=== PATIENT | male | born 1960 | race Caucasian/White ===

== ENCOUNTER 2018-10-12 18:07 | Inpatient (IN) | payer BC ==
[~2018-10-12] VITALS: Ht 185.4 cm; Wt 153.8 kg
[2018-10-12 18:00] VITALS: BP 116/65
[~2018-10-12 18:07] MED LIST: ringers solution, lacted 1,000 ML IV ONE
--- NOTE | 2018-10-12 18:45 | NUR ---
Patient arrived as direct admit patient. Vitals all WNL, doctor aware of patient arrival.
[2018-10-12] MEDS ORDERED: MESSAGE TO NURSING PO ONE ×3 (19:10)
[2018-10-12 19:55] LABS: BASOPHILS % (AUTO) 0.4 % (0-1); EOSINOPHILS # (AUTO) 0.2 X10'3 (0-0.9); EOSINOPHILS % (AUTO) 2.8 % (0-6); HEMATOCRIT 45.6 % (42.0-52.0); HEMOGLOBIN 15.5 g/dl (14.0-17.9); LYMPHOCYTES # (AUTO) 1.9 X10'3 (1.1-4.8); LYMPHOCYTES % (AUTO) 21.4 % (21-51); MEAN CORPUSCULAR HGB CONC 34.1 % (33.0-36.5); MEAN CORPUSCULAR VOLUME 93.9 FL (78-98); MONOCYTES # (AUTO) 0.8 X10'3 (0-0.9); NEUTROPHILS # (AUTO) 5.9 X10'3 (1.8-7.7); NEUTROPHILS % (AUTO) 66.4 % (42-75); PLATELET COUNT 164 X10'3 (140-440); RED BLOOD COUNT 4.86 X10'6 (4.70-6.10); RED CELL DISTRIBUTION WIDTH 12.8 % (11.5-14.5); WHITE BLOOD COUNT 8.8 X10'3 (4.5-11.0)
[2018-10-12] MEDS ORDERED: NO HOME MEDS (19:55)
[2018-10-12] MEDS ORDERED: mupirocin 2% ointment 22GM NS SCH (20:00)
[2018-10-12 20:12] LABS: ALANINE AMINOTRANSFERASE 32 U/L (12-78); ALBUMIN 4.1 G/DL (3.4-5.0); ALKALINE PHOSPHATASE 90 IU/L (46-116); ANION GAP 12 (8-16); ASPARTATE AMINO TRANSFERASE 20 U/L (10-37); BILIRUBIN,TOTAL 0.5 MG/DL (0.1-1.0); BLOOD UREA NITROGEN 19 MG/DL (7-18); BUN/CREATININE RATIO 17.6 (5.4-32.0); CALCIUM 9.2 MG/DL (8.5-10.1); CHLORIDE 103 MMOL/L (99-107); CREATININE 1.08 MG/DL (0.60-1.10); GLUCOSE 80 MG/DL (70-104); POTASSIUM 3.8 MMOL/L (3.5-5.1); SODIUM 140 MMOL/L (135-145); TOTAL CARBON DIOXIDE 25.5 MMOL/L (24-32); TOTAL PROTEIN 8.1 G/DL (6.4-8.2); eGFR 71 ML/MIN
[2018-10-12 22:00] VITALS: BP 139/82
[2018-10-12] MEDS: metoprolol tartrate 12.5mg (1/2 tablet) PO SCH (22:12)
[2018-10-12 22:16] LABS: ABG BASE EXCESS 2.2 mmol/L (-2.0-3.0); ABG HCO3 26.7 mmol/L (22.0-26.0); ABG OXYGEN SATURATION 94.6 % (95-98); ABG PCO2 (T) 40.5 mmHg (35.0-48.0); ABG PH (T) 7.436 (7.350-7.450); ABG PO2 (T) 70.8 mmHg (83-108); ALLEN'S TEST Positive; FCOHb 0.9 % (0.5-1.5); FMetHb 0.2 % (0.3-1.12); FO2Hb 93.6 % (94-100); PATIENT TEMPERATURE 36.6; TOTAL HEMOGLOBIN 15.5 G/dl (14.0-18.0)
[2018-10-12] MEDS ORDERED: mupirocin 2% nasal ointment 1gm UD NS SCH (22:17)
[2018-10-13] VITALS (16 sets, daily range): BP systolic 90–143; BP diastolic 52–73
--- NOTE | 2018-10-13 03:00 | NUR ---
Dr Key called regarding AVR prep. Betablocker will be given at 0530 before surgery. Nonadmin 0800 dose. He did not want insulin drip for the surgery.
[2018-10-13] MEDS ORDERED: ceFAZolin 1000mg inj ONE (05:01)
[2018-10-13] MEDS ORDERED: DOCUMENT DATE & TIME OF BETA-BLOCKER PO ONE (05:30)
[2018-10-13] MEDS ORDERED: mupirocin 2% nasal ointment 1gm UD NS ONE (05:30)
[2018-10-13] MEDS ORDERED: ceFAZolin inj. 3,000 MG in normal saline 100ml IV soln 100 ML IV ONE (05:30)
[2018-10-13] MEDS ORDERED: vancomycin inj 1,500 MG in normal saline 300ml IV soln IV ONE (05:30)
[2018-10-13] MEDS ORDERED: metoprolol tartrate 12.5mg (1/2 tablet) PO ONE (05:30)
[2018-10-13] MEDS ORDERED: famotidine 20mg tablet PO ONE (06:00)
[2018-10-13] MEDS ORDERED: LORazepam 2 mg/ml vial IV ONE (06:00)
--- NOTE | 2018-10-13 06:35 | NUR ---
Patient in room MED 307. I have received report from Chip FRANKLIN and Kayy FRANKLIN and had the opportunity to ask questions and assume patient care.
[2018-10-13 06:36] LABS: BASOPHILS % (AUTO) 0.3 % (0-1); EOSINOPHILS # (AUTO) 0.2 X10'3 (0-0.9); EOSINOPHILS % (AUTO) 2.5 % (0-6); HEMATOCRIT 45.1 % (42.0-52.0); HEMOGLOBIN 15.4 g/dl (14.0-17.9); LYMPHOCYTES # (AUTO) 2.2 X10'3 (1.1-4.8); LYMPHOCYTES % (AUTO) 23.2 % (21-51); MEAN CORPUSCULAR HEMOGLOBIN 32.1 PG (27.0-31.0); MEAN CORPUSCULAR HGB CONC 34.2 % (33.0-36.5); MEAN CORPUSCULAR VOLUME 93.7 FL (78-98); MONOCYTES # (AUTO) 0.9 X10'3 (0-0.9); MONOCYTES % (AUTO) 9.8 % (2-12); NEUTROPHILS # (AUTO) 6.2 X10'3 (1.8-7.7); NEUTROPHILS % (AUTO) 64.2 % (42-75); PLATELET COUNT 176 X10'3 (140-440); RED BLOOD COUNT 4.81 X10'6 (4.70-6.10); RED CELL DISTRIBUTION WIDTH 13.4 % (11.5-14.5); WHITE BLOOD COUNT 9.6 X10'3 (4.5-11.0)
[2018-10-13 06:50] LABS: ALBUMIN 3.7 G/DL (3.4-5.0); ANION GAP 10 (8-16); BLOOD UREA NITROGEN 17 MG/DL (7-18); BUN/CREATININE RATIO 15.3 (5.4-32.0); CHLORIDE 102 MMOL/L (99-107); CREATININE 1.11 MG/DL (0.60-1.10); GLUCOSE 93 MG/DL (70-104); POTASSIUM 3.9 MMOL/L (3.5-5.1); SODIUM 138 MMOL/L (135-145); TOTAL CARBON DIOXIDE 26.3 MMOL/L (24-32); eGFR 69 ML/MIN
[2018-10-13] MEDS: metoprolol tartrate 12.5mg (1/2 tablet) PO SCH (06:54)
--- NOTE | 2018-10-13 07:55 | NUR ---
Waited on giving ativan per [facility] nurses, actual administration time 0755.
--- NOTE | 2018-10-13 08:00 | NUR ---
Patient picked up in stable condition and taken to [facility].
[2018-10-13] MEDS ORDERED: SUFENTANIL CITRATE 50 MCG/ML 2ml ampule IV ONE (08:05)
[2018-10-13] MEDS ORDERED: MIDAZolam 1mg/ml 10ml vial ONE (08:05)
[2018-10-13] MEDS ORDERED: phenylephrine 10mg/ml inj. ONE (08:08)
[2018-10-13] MEDS ORDERED: pancuronium br 1mg/ml inj IV ONE (08:10)
[2018-10-13] MEDS ORDERED: etomidate 2mg/ml inj. ONE (08:10)
[2018-10-13 08:51] LABS: ABG BASE EXCESS 0.2 mmol/L (-2.0-3.0); ABG HCO3 26.4 mmol/L (22.0-26.0); ABG PCO2 48.2 mmHg (35.0-45.0); ABG PH 7.356 (7.350-7.450); ABG PO2 211.7 mmHg (60.0-100.0); CL (ABG) 104 mmol/L (99-107); FCOHb 0.8 % (0.5-1.5); FMetHb 0.3 % (0.3-1.12); FO2Hb 97.9 % (94-100); GLUCOSE (ABG) 107 mg/dl (70-105); IONIZED CA (ABG) 1.17 mmol/L (1.03-1.32); K (ABG) 4.2 mmol/L (3.3-5.1); NA (ABG) 135 mmol/L (135-145); TOTAL HEMOGLOBIN 14.7 G/dl (14.0-18.0)
[2018-10-13] MEDS ORDERED: ePHEDrine 50MG/ML INJ. ONE (08:52)
[2018-10-13 09:21] LABS: ACT @ 1.70 U 326 SEC (193-297); ACT @ 2.84 U 462 SEC (260-420); BASELINE ACT 165 SEC (101-148)
[2018-10-13 09:36] LABS: ABG BASE EXCESS 3.1 mmol/L (-2.0-3.0); ABG HCO3 27.8 mmol/L (22.0-26.0); ABG OXYGEN SATURATION 99.4 % (95-98); ABG PH 7.428 (7.350-7.450); ABG PO2 407.2 mmHg (60.0-100.0); CL (ABG) 102 mmol/L (99-107); FCOHb 0.5 % (0.5-1.5); FMetHb 0.1 % (0.3-1.12); FO2Hb 98.8 % (94-100); GLUCOSE (ABG) 113 mg/dl (70-105); IONIZED CA (ABG) 1.03 mmol/L (1.03-1.32); K (ABG) 5.2 mmol/L (3.3-5.1); NA (ABG) 131 mmol/L (135-145); TOTAL HEMOGLOBIN 11.5 G/dl (14.0-18.0)
[2018-10-13] MEDS ORDERED: fentaNYL /PF 50mcg/ml 5ml ampule ONE (09:53)
[2018-10-13 09:56] LABS: ABG BASE EXCESS VENOUS 1.9 mmol/L; ABG HCO3 VENOUS 27.6 mmol/L; ABG PCO2 VENOUS 47.8 mmHg; ABG PO2 VENOUS 43.3 mmHg; CL (ABG) 102 mmol/L (99-107); FHHb VENOUS 21.9 %; FMetHb VENOUS 0.1 %; GLUCOSE (ABG) 126 mg/dl (70-105); IONIZED CA (ABG) 1.08 mmol/L (1.03-1.32); K (ABG) 4.9 mmol/L (3.3-5.1); NA (ABG) 133 mmol/L (135-145); TOTAL HEMOGLOBIN 12.3 G/dl (14.0-18.0)
[2018-10-13] MEDS ORDERED: MESSAGE TO NURSING PO ONE (10:00)
[2018-10-13 10:10] LABS: ABG HCO3 27.4 mmol/L (22.0-26.0); ABG OXYGEN SATURATION 99.4 % (95-98); ABG PCO2 41.2 mmHg (35.0-45.0); ABG PH 7.441 (7.350-7.450); ABG PO2 404.5 mmHg (60.0-100.0); CL (ABG) 99 mmol/L (99-107); FCOHb 0.4 % (0.5-1.5); FMetHb 0.3 % (0.3-1.12); FO2Hb 98.7 % (94-100); GLUCOSE (ABG) 126 mg/dl (70-105); IONIZED CA (ABG) 1.04 mmol/L (1.03-1.32); NA (ABG) 129 mmol/L (135-145); TOTAL HEMOGLOBIN 11.2 G/dl (14.0-18.0)
[2018-10-13 10:35] LABS: ABG BASE EXCESS VENOUS 2.2 mmol/L; ABG HCO3 VENOUS 27.5 mmol/L; ABG PCO2 VENOUS 45.9 mmHg; ABG PO2 VENOUS 35.7 mmHg; CL (ABG) 102 mmol/L (99-107); FCOHb VENOUS 1.4 %; FHHb VENOUS 34.2 %; FMetHb VENOUS 0.1 %; FO2Hb VENOUS 64.3 %; GLUCOSE (ABG) 135 mg/dl (70-105); NA (ABG) 133 mmol/L (135-145); TOTAL HEMOGLOBIN 11.9 G/dl (14.0-18.0)
[2018-10-13] MEDS ORDERED: nitroGLYCERIN-Tridil 50MG/D5W 250 ML IV PRN (10:52)
[2018-10-13] MEDS ORDERED: niCARDipine-NS 40mg/200ml IVPB 200 ML IV PRN (10:52)
[2018-10-13] MEDS ORDERED: HYDROcodone/acetaminophen 10/325mg tab PO PRN (10:55)
[2018-10-13] MEDS ORDERED: sodium phosphate inj. 30 MMOL in dextrose 5%-water 250 ML IV PRN (10:55)
[2018-10-13] MEDS ORDERED: pantoprazole 40 MG vial IV ONE (10:55)
[2018-10-13] MEDS ORDERED: acetaminophen 325mg tablet PO PRN (10:55)
[2018-10-13] MEDS ORDERED: magnesium 4gm in 100ml NS 100 ML IV PRN (10:55)
[2018-10-13] MEDS ORDERED: potassium Cl 20mEq/100mL bag 100 ML IV PRN ×2 (10:55)
[2018-10-13] MEDS ORDERED: dextrose 50%-water 50ml dispensing syringe IV PRN (10:55)
[2018-10-13] MEDS ORDERED: normal saline 250ml IV soln 250 ML IV PRN (10:55)
[2018-10-13] MEDS ORDERED: Neutra Phos packet PO PRN (10:55)
[2018-10-13] MEDS ORDERED: metoclopramide 5 mg/ml inj IV PRN (10:55)
[2018-10-13] MEDS ORDERED: insulin regular, human inj. 100 UNITS in normal saline 100ml IV soln 100 ML IV SCH ×2 (10:55)
[2018-10-13] MEDS ORDERED: magnesium hydroxide 30ml (MOM) UD suspension PO PRN (10:55)
[2018-10-13] MEDS ORDERED: sodium phosphate inj. 15 MMOL in dextrose 5%-water 150 ML IV PRN (10:55)
[2018-10-13 10:56] LABS: ACTIVATED CLOTTING TIME 137 SEC (101-148)
--- NOTE | 2018-10-13 11:15 | NUR ---
Received to room 2038, accompanied by and Dr. Rooney and surgical crew. Placed on ventilator, to bowstring maker, arterial line and PA line pressure monitored. Chest tubes to suction at 20 cm. Horton cath to gravity drainage. Dressings are dry and intact. See assessment record. All vasoactive drugs are infusing via central line.
[2018-10-13] MEDS: insulin regular, human 100 UNIT in normal saline 100ml IV soln 99 ML IV SCH ×4 (11:34→14:02)
[2018-10-13] MEDS: sodium chloride 0.45% 1,000 ML IV SCH (11:35)
[2018-10-13 11:41] LABS: BASOPHILS % (AUTO) 0.2 % (0-1); EOSINOPHILS # (AUTO) 0.2 X10'3 (0-0.9); EOSINOPHILS % (AUTO) 1.3 % (0-6); HEMATOCRIT 44.4 % (42.0-52.0); HEMOGLOBIN 15.4 g/dl (14.0-17.9); LYMPHOCYTES # (AUTO) 0.8 X10'3 (1.1-4.8); LYMPHOCYTES % (AUTO) 4.8 % (21-51); MEAN CORPUSCULAR HEMOGLOBIN 32.3 PG (27.0-31.0); MEAN CORPUSCULAR HGB CONC 34.8 g/dL (33.0-36.5); MEAN CORPUSCULAR VOLUME 92.8 FL (78-98); MEAN PLATELET VOLUME 9.8 FL (7.4-10.4); MONOCYTES # (AUTO) 0.6 X10'3 (0-0.9); MONOCYTES % (AUTO) 3.3 % (2-12); NEUTROPHILS # (AUTO) 15.6 X10'3 (1.8-7.7); NEUTROPHILS % (AUTO) 90.4 % (42-75); PLATELET COUNT 107 X10'3 (140-440); RED BLOOD COUNT 4.78 X10'6 (4.70-6.10); RED CELL DISTRIBUTION WIDTH 13.3 % (11.5-14.5); WHITE BLOOD COUNT 17.3 X10'3 (4.5-11.0)
[2018-10-13] MEDS: albumin (Human) 5% 250ml 250 ML IV PRN ×3 (11:47→13:19)
[2018-10-13 11:51] LABS: ABG BASE EXCESS -0.6 mmol/L (-2.0-3.0); ABG HCO3 23.8 mmol/L (22.0-26.0); ABG OXYGEN SATURATION 96.1 % (95-98); ABG PCO2 (T) 38.6 mmHg (35.0-48.0); ABG PH (T) 7.408 (7.350-7.450); ABG PO2 (T) 84.4 mmHg (83-108); FCOHb 1.1 % (0.5-1.5); FMetHb 0.3 % (0.3-1.12); FO2Hb 94.8 % (94-100); MINUTE VOLUME 11 L/min; PEEP 5 cm H2O; RESPIRATORY RATE 14 b/min; RESPIRATORY RATE (OBSERVED) 14 b/min; TIDAL VOLUME 700 mL
[2018-10-13 11:55] LABS: ALANINE AMINOTRANSFERASE 25 U/L (12-78); ALBUMIN 3.4 G/DL (3.4-5.0); ALBUMIN/GLOBULIN RATIO 1.3 (1.1-1.5); ALKALINE PHOSPHATASE 62 IU/L (46-116); ANION GAP 10 (8-16); BILIRUBIN,TOTAL 1.3 MG/DL (0.1-1.0); BLOOD UREA NITROGEN 17 MG/DL (7-18); BUN/CREATININE RATIO 14.7 (5.4-32.0); CALCIUM 8.4 MG/DL (8.5-10.1); CHLORIDE 103 MMOL/L (99-107); CREATININE 1.16 MG/DL (0.60-1.10); GLUCOSE 146 MG/DL (70-104); INR 1.3 INR; MAGNESIUM 2.8 MG/DL (1.5-2.4); PARTIAL THROMBOPLASTIN TIME 31 SECONDS (22-32); PROTHROMBIN TIME 12.7 SECONDS (9.0-12.0); SODIUM 138 MMOL/L (135-145); TOTAL CARBON DIOXIDE 24.8 MMOL/L (24-32); eGFR 65 ML/MIN
[2018-10-13 11:56] LABS: ASPARTATE AMINO TRANSFERASE 28 U/L (10-37); POTASSIUM 4.6 MMOL/L (3.5-5.1)
[2018-10-13] MEDS: magnesium 2GM in 50ml NS 50 ML IV PRN (12:08)
[2018-10-13] MEDS: morphine 4 MG/ML inj SYRINge IV PRN ×5 (12:11→22:57)
[2018-10-13] MEDS: insulin Lispro (HumaLOG) vial - multi-dose SQ SCH ×2 (13:00→18:00)
[2018-10-13] MEDS: ceFAZolin 1GM/D5W- ADD-VANTAGE 50 ML IV SCH (15:27)
[2018-10-13 16:20] LABS: ABG BASE EXCESS -8.4 mmol/L (-2.0-3.0); ABG OXYGEN SATURATION 96.1 % (95-98); ABG PCO2 (T) 35.4 mmHg (35.0-48.0); ABG PO2 (T) 95.1 mmHg (83-108); FCOHb 0.5 % (0.5-1.5); FMetHb 0.1 % (0.3-1.12); FO2Hb 95.5 % (94-100); MINUTE VOLUME 11 L/min; PEEP 5 cm H2O; RESPIRATORY RATE (OBSERVED) 15 b/min; TIDAL VOLUME 724 mL; TOTAL HEMOGLOBIN 14.9 G/dl (14.0-18.0)
[2018-10-13 17:07] LABS: BASOPHILS % (AUTO) 0 % (0-1); EOSINOPHILS # (AUTO) 0.2 X10'3 (0-0.9); HEMATOCRIT 42.5 % (42.0-52.0); HEMOGLOBIN 14.4 g/dl (14.0-17.9); LYMPHOCYTES # (AUTO) 0.7 X10'3 (1.1-4.8); LYMPHOCYTES % (AUTO) 3.9 % (21-51); MEAN CORPUSCULAR HEMOGLOBIN 32.2 PG (27.0-31.0); MEAN CORPUSCULAR VOLUME 94.7 FL (78-98); MONOCYTES # (AUTO) 0.5 X10'3 (0-0.9); MONOCYTES % (AUTO) 2.5 % (2-12); NEUTROPHILS # (AUTO) 16.7 X10'3 (1.8-7.7); NEUTROPHILS % (AUTO) 92.6 % (42-75); PLATELET COUNT 120 X10'3 (140-440); RED BLOOD COUNT 4.49 X10'6 (4.70-6.10)
[2018-10-13 17:49] LABS: ANION GAP 18 (8-16); BLOOD UREA NITROGEN 18 MG/DL (7-18); BUN/CREATININE RATIO 10.9 (5.4-32.0); CHLORIDE 104 MMOL/L (99-107); CREATININE 1.65 MG/DL (0.60-1.10); GLUCOSE 215 MG/DL (70-104); MAGNESIUM 2.6 MG/DL (1.5-2.4); PHOSPHORUS 4.4 MG/DL (2.3-4.5); POTASSIUM 3.9 MMOL/L (3.5-5.1); SODIUM 141 MMOL/L (135-145); TOTAL CARBON DIOXIDE 18.8 MMOL/L (24-32); eGFR 43 ML/MIN
[2018-10-13] MEDS: potassium Cl 20mEq/100mL bag 100 ML IV PRN ×2 (18:12→19:21)
--- NOTE | 2018-10-13 18:30 | NUR ---
Patient in room ICU 2038. I have received report from Anastasiia FRANKLIN, and had the opportunity to ask questions and assume patient care.
--- NOTE | 2018-10-13 19:00 | NUR ---
PT is resting with no s/s of distress noted at this time. VSS. PT is intubated and mechanically vented, on SPONT mode and tolerating well. O2 sat >95%. PT awakens easily to name and light touch, nods head yes/no to questions. PT is AV paced, rate s 80, pacer wires are secure. CT in place and secure, sanguinous drainage noted. Horton in place draining to gravity. Bilat soft wrist restraints in place and secure. Bed is locked and low. Will continue to monitor closely.
[2018-10-13] MEDS: ondansetron/PF 4mg/2ml inj IV PRN (19:18)
[2018-10-13] MEDS: vancomycin/NS 1 GM ADD-VANTAGE 250 ML IV SCH (19:47)
[2018-10-13] MEDS: mupirocin 2% nasal ointment 1gm UD NS SCH (19:47)
[2018-10-13] MEDS: docusate sod 100mg capsule PO SCH (19:48)
[2018-10-13] MEDS ORDERED: mupirocin 2% ointment 22GM NS SCH (20:00)
[2018-10-13 20:20] LABS: ABG BASE EXCESS -8.6 mmol/L (-2.0-3.0); ABG HCO3 16.3 mmol/L (22.0-26.0); ABG OXYGEN SATURATION 95.5 % (95-98); ABG PCO2 (T) 32.3 mmHg (35.0-48.0); ABG PH (T) 7.321 (7.350-7.450); ABG PO2 (T) 84.5 mmHg (83-108); FCOHb 0.5 % (0.5-1.5); FMetHb 0.2 % (0.3-1.12); FO2Hb 94.8 % (94-100); MINUTE VOLUME 17 L/min; PATIENT TEMPERATURE 36.8; PEEP 5 cm H2O; RESPIRATORY RATE (OBSERVED) 24 b/min; TOTAL HEMOGLOBIN 14.7 G/dl (14.0-18.0)
--- NOTE | 2018-10-13 20:45 | NUR ---
Pt extubated, tolerated well. Placed on 4L O2 to NC, doing well, O2 sat >95%.
[2018-10-14] VITALS (24 sets, daily range): BP systolic 101–145; BP diastolic 53–90
[2018-10-14] MEDS: ceFAZolin 1GM/D5W- ADD-VANTAGE 50 ML IV SCH ×4 (00:22→23:08)
--- NOTE | 2018-10-14 00:30 | NUR ---
PT resting with no s/s of distress noted at this time. VSS. Bed is locked and low. Call light is within reach. Will continue to monitor.
[2018-10-14 02:03] LABS: BASOPHILS % (AUTO) 0 % (0-1); EOSINOPHILS % (AUTO) 0 % (0-6); HEMATOCRIT 38.7 % (42.0-52.0); HEMOGLOBIN 13.6 g/dl (14.0-17.9); LYMPHOCYTES # (AUTO) 0.5 X10'3 (1.1-4.8); LYMPHOCYTES % (AUTO) 2.8 % (21-51); MEAN CORPUSCULAR HEMOGLOBIN 32.9 PG (27.0-31.0); MEAN CORPUSCULAR VOLUME 93.9 FL (78-98); MEAN PLATELET VOLUME 10.2 FL (7.4-10.4); MONOCYTES # (AUTO) 0.6 X10'3 (0-0.9); MONOCYTES % (AUTO) 3.9 % (2-12); NEUTROPHILS # (AUTO) 15.1 X10'3 (1.8-7.7); NEUTROPHILS % (AUTO) 93.3 % (42-75); PLATELET COUNT 102 X10'3 (140-440); RED BLOOD COUNT 4.13 X10'6 (4.70-6.10); RED CELL DISTRIBUTION WIDTH 12.5 % (11.5-14.5); WHITE BLOOD COUNT 16.2 X10'3 (4.5-11.0)
[2018-10-14 02:09] LABS: INR 1.1 INR; PARTIAL THROMBOPLASTIN TIME 26 SECONDS (22-32); PROTHROMBIN TIME 11.4 SECONDS (9.0-12.0)
[2018-10-14 02:19] LABS: ALANINE AMINOTRANSFERASE 25 U/L (12-78); ALBUMIN 3.8 G/DL (3.4-5.0); ALBUMIN/GLOBULIN RATIO 1.4 (1.1-1.5); ALKALINE PHOSPHATASE 50 IU/L (46-116); ANION GAP 14 (8-16); ASPARTATE AMINO TRANSFERASE 31 U/L (10-37); BILIRUBIN,TOTAL 0.6 MG/DL (0.1-1.0); BLOOD UREA NITROGEN 20 MG/DL (7-18); BUN/CREATININE RATIO 14.1 (5.4-32.0); CALCIUM 8.3 MG/DL (8.5-10.1); CHLORIDE 106 MMOL/L (99-107); CREATININE 1.42 MG/DL (0.60-1.10); GLUCOSE 149 MG/DL (70-104); MAGNESIUM 2.2 MG/DL (1.5-2.4); PHOSPHORUS 2.6 MG/DL (2.3-4.5); SODIUM 141 MMOL/L (135-145); TOTAL CARBON DIOXIDE 21.4 MMOL/L (24-32); TOTAL PROTEIN 6.5 G/DL (6.4-8.2); eGFR 52 ML/MIN
[2018-10-14 02:21] LABS: POTASSIUM 4.7 MMOL/L (3.5-5.1)
[2018-10-14] MEDS: magnesium 2GM in 50ml NS 50 ML IV PRN (03:37)
[2018-10-14] MEDS: morphine 4 MG/ML inj SYRINge IV PRN ×3 (03:52→10:35)
[2018-10-14] MEDS: ondansetron/PF 4mg/2ml inj IV PRN (03:52)
--- NOTE | 2018-10-14 05:30 | NUR ---
PT dangled at side of bed, used IS and flutter valve. PT stood at side of bed,tolerated well. VSS. PT denied any light headedness/dizziness or nausea. Will continue to monitor.
--- NOTE | 2018-10-14 06:30 | NUR ---
Patient in room ICU 2038. I have received report from Tae FRANKLIN and had the opportunity to ask questions and assume patient care.
--- NOTE | 2018-10-14 06:31 | NUR ---
Problems reprioritized. Patient report given, questions answered & plan of care reviewed with Alexus FRANKLIN.
[2018-10-14] MEDS: vancomycin/NS 1 GM ADD-VANTAGE 250 ML IV SCH ×2 (08:05→20:02)
[2018-10-14] MEDS: metoprolol tartrate 12.5mg (1/2 tablet) PO SCH ×2 (08:06→20:03)
[2018-10-14] MEDS: docusate sod 100mg capsule PO SCH ×2 (08:06→20:02)
[2018-10-14] MEDS: aspirin 325mg tablet, delayed-release (Ecotrin) PO SCH (08:06)
[2018-10-14] MEDS: atorvastatin 10mg tablet PO SCH (08:06)
[2018-10-14] MEDS: mupirocin 2% nasal ointment 1gm UD NS SCH ×2 (08:07→20:02)
[2018-10-14] MEDS: insulin regular, human 100 UNIT in normal saline 100ml IV soln 99 ML IV SCH ×2 (08:17)
[2018-10-14] MEDS: HYDROcodone/acetaminophen 10/325mg tab PO PRN ×3 (08:29→17:08)
[2018-10-14] MEDS ORDERED: pantoprazole 40mg Tablet.DR PO ONE (08:30)
[2018-10-14] MEDS: pantoprazole 40mg Tablet.DR PO SCH (08:30)
[2018-10-14] MEDS: insulin Lispro (HumaLOG) vial - multi-dose SQ SCH ×3 (09:00→16:40)
--- NOTE | 2018-10-14 16:22 | NUR ---
ART line and Hildebran D/C per MD order per hospital policy without incident. Patient tolerated well.
--- NOTE | 2018-10-14 18:25 | NUR ---
Problems reprioritized. Patient report given, questions answered & plan of care reviewed with Rehan FRANKLIN.
--- NOTE | 2018-10-14 18:30 | NUR ---
Patient in room CICU 2011. I have received report from NOEMI Vaughan and had the opportunity to ask questions and assume patient care.
--- NOTE | 2018-10-14 22:30 | NUR ---
Patient refused bedtime blood sugar check despite education.
[2018-10-15] VITALS (22 sets, daily range): BP systolic 102–165; BP diastolic 46–92
[2018-10-15] MEDS: HYDROcodone/acetaminophen 10/325mg tab PO PRN ×2 (04:12→09:16)
[2018-10-15 05:46] LABS: BASOPHILS % (AUTO) 0 % (0-1); EOSINOPHILS # (AUTO) 0.3 X10'3 (0-0.9); EOSINOPHILS % (AUTO) 1.6 % (0-6); HEMATOCRIT 35.5 % (42.0-52.0); HEMOGLOBIN 12.1 g/dl (14.0-17.9); LYMPHOCYTES # (AUTO) 1.1 X10'3 (1.1-4.8); LYMPHOCYTES % (AUTO) 5.3 % (21-51); MEAN CORPUSCULAR HEMOGLOBIN 32.2 PG (27.0-31.0); MEAN CORPUSCULAR HGB CONC 34.1 g/dL (33.0-36.5); MEAN CORPUSCULAR VOLUME 94.6 FL (78-98); MEAN PLATELET VOLUME 10.4 FL (7.4-10.4); MONOCYTES # (AUTO) 1.4 X10'3 (0-0.9); MONOCYTES % (AUTO) 6.4 % (2-12); NEUTROPHILS # (AUTO) 18.4 X10'3 (1.8-7.7); NEUTROPHILS % (AUTO) 86.7 % (42-75); PLATELET COUNT 78 X10'3 (140-440); RED BLOOD COUNT 3.76 X10'6 (4.70-6.10); RED CELL DISTRIBUTION WIDTH 13.2 % (11.5-14.5); WHITE BLOOD COUNT 21.3 X10'3 (4.5-11.0)
[2018-10-15 06:02] LABS: ALBUMIN 3.6 G/DL (3.4-5.0); ANION GAP 9 (8-16); BLOOD UREA NITROGEN 24 MG/DL (7-18); BUN/CREATININE RATIO 19.4 (5.4-32.0); CALCIUM 8.5 MG/DL (8.5-10.1); CHLORIDE 102 MMOL/L (99-107); CREATININE 1.24 MG/DL (0.60-1.10); GLUCOSE 139 MG/DL (70-104); MAGNESIUM 2.3 MG/DL (1.5-2.4); PHOSPHORUS 3.3 MG/DL (2.3-4.5); POTASSIUM 4.7 MMOL/L (3.5-5.1); SODIUM 139 MMOL/L (135-145); TOTAL CARBON DIOXIDE 27.8 MMOL/L (24-32); eGFR 60 ML/MIN
[2018-10-15 06:05] LABS: LARGE PLATELETS FEW; PLATELET ESTIMATE DECREASED
--- NOTE | 2018-10-15 06:14 | NUR ---
Problems reprioritized. Patient report given, questions answered & plan of care reviewed with NOEMI Vaughan .
--- NOTE | 2018-10-15 06:30 | NUR ---
Patient in room CICU 2011. I have received report from Rehan FRANKLIN and had the opportunity to ask questions and assume patient care.
[2018-10-15] MEDS: insulin Lispro (HumaLOG) vial - multi-dose SQ SCH ×3 (06:50→16:58)
--- NOTE | 2018-10-15 07:30 | NUR ---
CT removed by Dr. Key at 0730.
[2018-10-15] MEDS: metoprolol tartrate 12.5mg (1/2 tablet) PO SCH ×2 (08:00→20:00)
[2018-10-15] MEDS: aspirin 325mg tablet, delayed-release (Ecotrin) PO SCH (09:09)
[2018-10-15] MEDS: mupirocin 2% nasal ointment 1gm UD NS SCH (09:09)
[2018-10-15] MEDS: atorvastatin 10mg tablet PO SCH ×2 (09:09→21:50)
[2018-10-15] MEDS: docusate sod 100mg capsule PO SCH ×3 (09:09→21:51)
[2018-10-15] MEDS: magnesium 2GM in 50ml NS 50 ML IV PRN (09:10)
[2018-10-15] MEDS: sodium chloride 0.45% 1,000 ML IV SCH ×2 (12:23→21:51)
[2018-10-15] MEDS ORDERED: cefazolin/dext.iso 2gm/50ml 50 ML IV ONE (14:28)
[2018-10-15] MEDS ORDERED: lidocaine 1%/epinephrine 1:100,000 injection 50ml vial ONE (14:31)
[2018-10-15] MEDS: vancomycin/NS 1 GM ADD-VANTAGE 250 ML IV SCH ×2 (14:40→21:57)
--- NOTE | 2018-10-15 15:04 | NUR ---
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 Has been NPO since 0600 this morning.
[2018-10-15] MEDS ORDERED: midazolam 2 mg/2 ml injection ONE ×6 (15:24→17:04)
[2018-10-15] MEDS ORDERED: fentaNYL/PF 50MCG/1 ML 2ML syringe ONE ×4 (15:24→16:45)
[2018-10-15] MEDS ORDERED: proCHLORperazine 10 MG/2 ml inj ONE (15:35)
[2018-10-15] MEDS ORDERED: iohexol 350MG/ML 100ml bottle IV ONE (15:54)
[2018-10-15] MEDS ORDERED: HYDROmorphone 1 mg/ml syringe ONE (15:55)
[2018-10-15] MEDS ORDERED: diphenhydrAMINE 50 mg/ml inj ONE (16:07)
--- NOTE | 2018-10-15 16:58 | NUR ---
Problems reprioritized. Patient report given, questions answered & plan of care reviewed with Guicho FRANKLIN.
--- NOTE | 2018-10-15 18:03 | NUR ---
Patient in room CICU 2011. I have received report from Jm FRANKLIN and had the opportunity to ask questions and assume patient care.
--- NOTE | 2018-10-15 18:25 | NUR ---
Pt arrived via gurney from recovery. post op VSS
--- NOTE | 2018-10-15 18:29 | NUR ---
Problems reprioritized. Patient report given, questions answered & plan of care reviewed with Flaqiuta FRANKLIN.
--- NOTE | 2018-10-15 22:55 | NUR ---
2000..Assessment as noted.
--- NOTE | 2018-10-15 22:55 | NUR ---
1830..Patient in room CICU 2011. I have received report from Elizabeth FRANKLIN and had the opportunity to ask questions and assume patient care.
[2018-10-16] VITALS (14 sets, daily range): BP systolic 101–152; BP diastolic 46–86
--- NOTE | 2018-10-16 00:28 | NUR ---
0000..No changes noted.
[2018-10-16] MEDS: HYDROcodone/acetaminophen 10/325mg tab PO PRN ×5 (01:47→21:45)
--- NOTE | 2018-10-16 02:32 | NUR ---
0230..Complained of incisional pain, medicated with norco 10\325 2 tabs per orders with good effect, no other changes noted.
[2018-10-16] MEDS: morphine 4 MG/ML inj SYRINge IV PRN (04:43)
[2018-10-16] MEDS: sodium chloride 0.45% 1,000 ML IV SCH ×2 (04:45→09:18)
--- NOTE | 2018-10-16 06:27 | NUR ---
0625..Problems reprioritized. Patient report given, questions answered & plan of care reviewed with Shabbir FRANKLIN.
[2018-10-16 06:51] LABS: BASOPHILS % (AUTO) 0 % (0-1); EOSINOPHILS # (AUTO) 0.2 X10'3 (0-0.9); EOSINOPHILS % (AUTO) 1.3 % (0-6); HEMATOCRIT 33.3 % (42.0-52.0); HEMOGLOBIN 11.3 g/dl (14.0-17.9); LYMPHOCYTES # (AUTO) 1.5 X10'3 (1.1-4.8); MEAN CORPUSCULAR HEMOGLOBIN 32.2 PG (27.0-31.0); MEAN CORPUSCULAR VOLUME 94.7 FL (78-98); MEAN PLATELET VOLUME 10.6 FL (7.4-10.4); MONOCYTES # (AUTO) 1.2 X10'3 (0-0.9); MONOCYTES % (AUTO) 8.3 % (2-12); NEUTROPHILS # (AUTO) 11.8 X10'3 (1.8-7.7); NEUTROPHILS % (AUTO) 80.4 % (42-75); PLATELET COUNT 71 X10'3 (140-440); RED BLOOD COUNT 3.52 X10'6 (4.70-6.10); RED CELL DISTRIBUTION WIDTH 13.7 % (11.5-14.5); WHITE BLOOD COUNT 14.6 X10'3 (4.5-11.0)
[2018-10-16 07:48] LABS: ALBUMIN 3.3 G/DL (3.4-5.0); ANION GAP 8 (8-16); BLOOD UREA NITROGEN 22 MG/DL (7-18); BUN/CREATININE RATIO 19.6 (5.4-32.0); CALCIUM 7.8 MG/DL (8.5-10.1); CHLORIDE 104 MMOL/L (99-107); CREATININE 1.12 MG/DL (0.60-1.10); GLUCOSE 113 MG/DL (70-104); MAGNESIUM 2.2 MG/DL (1.5-2.4); PHOSPHORUS 2.4 MG/DL (2.3-4.5); POTASSIUM 3.9 MMOL/L (3.5-5.1); SODIUM 140 MMOL/L (135-145); TOTAL CARBON DIOXIDE 28.1 MMOL/L (24-32); eGFR 68 ML/MIN
[2018-10-16] MEDS: metoprolol tartrate 12.5mg (1/2 tablet) PO SCH ×2 (08:00→19:47)
[2018-10-16] MEDS: aspirin 81mg tab.chew PO SCH (09:01)
[2018-10-16] MEDS: pantoprazole 40mg Tablet.DR PO SCH (09:02)
--- NOTE | 2018-10-16 09:55 | NUR ---
Report given to LAM Palencia RN.
--- NOTE | 2018-10-16 10:26 | NUR ---
Clifford watson'luis with no issues per MD order. Requested k and mag replacement orders from Dr. Weinberg.
--- NOTE | 2018-10-16 10:44 | NUR ---
Tx pt to ACCE; pt stable upon tx, care given to NOEMI Palencia.
--- NOTE | 2018-10-16 10:53 | NUR ---
Patient in room MED 307. I have received report from Vida FRANKLIN and had the opportunity to ask questions and assume patient care. Patient arrived from CICU. Pt. made comfortable and placed on obstetrics tech. Pt. does no have any complaints.
--- NOTE | 2018-10-16 15:48 | NUR ---
F/u for nutrition consult: Attempted visit with pt today however pt was sleeping and did not wake for Feeder Loader visit. Documented that pt with poor PO intake however per RN patient is eating better today and states that pt would benefit from ONS, will send Ensure high protein TID, MD ferrari. LBM 10/12, pt with routine Colace and MoM PRN not yet given, RN states they will give pt MoM tomorrow and that pt is with flatus. Will continue to follow. Nutrition consult. Patient is s/p aortic valve replacement and has Appetite is low. Not in room at this time. Patient will be seen for food preferences and written high protein education when he is available in room. Recommend: 1. Continue no concentrated sweets diet 2. Ensure High Protein TID 3. Continue bowel care; monitor need for additional 4. Weight per rx Addendum: 10/16/18 at [address] Amended: Links added.
[2018-10-16] MEDS: lactose-reduced food (Ensure High Protein) 237ml bottle PO SCH (18:00)
--- NOTE | 2018-10-16 18:00 | NUR ---
Patient in room MED 307. I have received report from Talha FRANKLIN and had the opportunity to ask questions and assume patient care.
--- NOTE | 2018-10-16 18:10 | NUR ---
Problems reprioritized. Patient report given, questions answered & plan of care reviewed with Robbin Grider and Jada Dupont RN.
[2018-10-16] MEDS: docusate sod 100mg capsule PO SCH (19:46)
[2018-10-17] MEDS: sodium chloride 0.45% 1,000 ML IV SCH (00:45)
[2018-10-17] MEDS: HYDROcodone/acetaminophen 10/325mg tab PO PRN ×5 (02:04→22:02)
[2018-10-17 02:45] VITALS: BP 125/65
[2018-10-17 06:00] VITALS: BP 138/79
--- NOTE | 2018-10-17 06:23 | NUR ---
Patient in room MED 307. I have received report from Jada FRANKLIN and had the opportunity to ask questions and assume patient care.
[2018-10-17 06:28] LABS: BASOPHILS % (AUTO) 0.3 % (0-1); EOSINOPHILS # (AUTO) 0.3 X10'3 (0-0.9); HEMATOCRIT 33.2 % (42.0-52.0); HEMOGLOBIN 11.3 g/dl (14.0-17.9); LYMPHOCYTES # (AUTO) 1.7 X10'3 (1.1-4.8); MEAN CORPUSCULAR HEMOGLOBIN 32.2 PG (27.0-31.0); MEAN CORPUSCULAR HGB CONC 34.1 g/dL (33.0-36.5); MEAN CORPUSCULAR VOLUME 94.6 FL (78-98); MEAN PLATELET VOLUME 10.4 FL (7.4-10.4); MONOCYTES # (AUTO) 1.1 X10'3 (0-0.9); MONOCYTES % (AUTO) 7.8 % (2-12); NEUTROPHILS # (AUTO) 10.8 X10'3 (1.8-7.7); NEUTROPHILS % (AUTO) 77.9 % (42-75); PLATELET COUNT 86 X10'3 (140-440); RED BLOOD COUNT 3.51 X10'6 (4.70-6.10); RED CELL DISTRIBUTION WIDTH 13.1 % (11.5-14.5); WHITE BLOOD COUNT 13.9 X10'3 (4.5-11.0)
[2018-10-17 06:30] LABS: ALBUMIN 3.1 G/DL (3.4-5.0); ANION GAP 7 (8-16); BLOOD UREA NITROGEN 17 MG/DL (7-18); BUN/CREATININE RATIO 18.1 (5.4-32.0); CHLORIDE 101 MMOL/L (99-107); CREATININE 0.94 MG/DL (0.60-1.10); GLUCOSE 100 MG/DL (70-104); MAGNESIUM 1.9 MG/DL (1.5-2.4); PHOSPHORUS 3.4 MG/DL (2.3-4.5); POTASSIUM 4.1 MMOL/L (3.5-5.1); SODIUM 137 MMOL/L (135-145); TOTAL CARBON DIOXIDE 29.4 MMOL/L (24-32); eGFR 83 ML/MIN
[2018-10-17] MEDS: aspirin 81mg tab.chew PO SCH (07:47)
[2018-10-17] MEDS: atorvastatin 10mg tablet PO SCH (07:47)
[2018-10-17] MEDS: pantoprazole 40mg Tablet.DR PO SCH (07:47)
[2018-10-17] MEDS: docusate sod 100mg capsule PO SCH ×2 (07:47→19:46)
[2018-10-17] MEDS: metoprolol tartrate 12.5mg (1/2 tablet) PO SCH ×2 (07:51→19:47)
[2018-10-17] MEDS: lactose-reduced food (Ensure High Protein) 237ml bottle PO SCH ×3 (08:03→18:55)
[2018-10-17] MEDS ORDERED: metoprolol tartrate 12.5mg (1/2 tablet) PO ONE (09:45)
[2018-10-17] MEDS ORDERED: magnesium citrate 296ml oral solution PO ONE (09:50)
--- NOTE | 2018-10-17 09:54 | NUR ---
notified PA of frequent PVCs. orders received
[2018-10-17 11:00] VITALS: BP 112/57
[2018-10-17 15:00] VITALS: BP 140/79
[2018-10-17 19:00] VITALS: BP 129/62
[2018-10-17 23:00] VITALS: BP 149/87
[2018-10-18] MEDS: HYDROcodone/acetaminophen 10/325mg tab PO PRN ×2 (02:05→07:49)
[2018-10-18 03:00] VITALS: BP 149/87
[2018-10-18 05:39] LABS: MAGNESIUM 2.1 MG/DL (1.5-2.4); PHOSPHORUS 3.7 MG/DL (2.3-4.5)
[2018-10-18 06:00] VITALS: BP 112/65
--- NOTE | 2018-10-18 06:20 | NUR ---
Problems reprioritized. Patient report given, questions answered & plan of care reviewed with Art, RN.
[2018-10-18] MEDS: metoprolol tartrate 12.5mg (1/2 tablet) PO SCH ×2 (07:36→18:58)
[2018-10-18] MEDS: docusate sod 100mg capsule PO SCH ×2 (07:36→18:57)
[2018-10-18] MEDS: aspirin 81mg tab.chew PO SCH (07:36)
[2018-10-18] MEDS: pantoprazole 40mg Tablet.DR PO SCH (07:36)
[2018-10-18] MEDS: lactose-reduced food (Ensure High Protein) 237ml bottle PO SCH ×3 (07:36→18:12)
[2018-10-18] MEDS: atorvastatin 10mg tablet PO SCH (07:36)
[2018-10-18 08:03] LABS: BASOPHILS # (AUTO) 0.1 X10'3 (0-0.2); BASOPHILS % (AUTO) 0.8 % (0-1); EOSINOPHILS # (AUTO) 0.5 X10'3 (0-0.9); EOSINOPHILS % (AUTO) 3.9 % (0-6); HEMATOCRIT 36.5 % (42.0-52.0); HEMOGLOBIN 12.5 g/dl (14.0-17.9); LYMPHOCYTES # (AUTO) 1.4 X10'3 (1.1-4.8); LYMPHOCYTES % (AUTO) 11.2 % (21-51); MEAN CORPUSCULAR HEMOGLOBIN 32.4 PG (27.0-31.0); MEAN CORPUSCULAR HGB CONC 34.3 g/dL (33.0-36.5); MEAN CORPUSCULAR VOLUME 94.7 FL (78-98); MEAN PLATELET VOLUME 9.5 FL (7.4-10.4); MONOCYTES # (AUTO) 0.9 X10'3 (0-0.9); MONOCYTES % (AUTO) 6.7 % (2-12); NEUTROPHILS # (AUTO) 9.9 X10'3 (1.8-7.7); NEUTROPHILS % (AUTO) 77.4 % (42-75); PLATELET COUNT 110 X10'3 (140-440); RED BLOOD COUNT 3.86 X10'6 (4.70-6.10); RED CELL DISTRIBUTION WIDTH 13.6 % (11.5-14.5); WHITE BLOOD COUNT 12.8 X10'3 (4.5-11.0)
[2018-10-18 08:04] LABS: ALBUMIN 3.2 G/DL (3.4-5.0); ANION GAP 7 (8-16); BLOOD UREA NITROGEN 14 MG/DL (7-18); BUN/CREATININE RATIO 14.3 (5.4-32.0); CALCIUM 8.4 MG/DL (8.5-10.1); CHLORIDE 99 MMOL/L (99-107); CREATININE 0.98 MG/DL (0.60-1.10); GLUCOSE 114 MG/DL (70-104); POTASSIUM 3.7 MMOL/L (3.5-5.1); SODIUM 135 MMOL/L (135-145); TOTAL CARBON DIOXIDE 29.2 MMOL/L (24-32); eGFR 79 ML/MIN
[2018-10-18] MEDS: ondansetron/PF 4mg/2ml inj IV PRN (09:33)
[2018-10-18 11:00] VITALS: BP 103/67
--- NOTE | 2018-10-18 18:16 | NUR ---
Problems reprioritized. Patient report given, questions answered & plan of care reviewed with NOEMI Van.
[2018-10-18 18:50] VITALS: BP 101/79
[2018-10-18 23:00] VITALS: BP 113/59
[2018-10-19 03:00] VITALS: BP 106/58
[2018-10-19 06:00] VITALS: BP 96/42
--- NOTE | 2018-10-19 06:10 | NUR ---
Patient in room MED 307. I have received report from NOEMI JAEGER, and had the opportunity to ask questions and assume patient care.
--- NOTE | 2018-10-19 06:20 | NUR ---
Problems reprioritized. Patient report given, questions answered & plan of care reviewed with NOEMI Prater.
[2018-10-19 06:44] LABS: MAGNESIUM 2.1 MG/DL (1.5-2.4); PHOSPHORUS 3.5 MG/DL (2.3-4.5)
[2018-10-19] MEDS: aspirin 81mg tab.chew PO SCH (07:31)
[2018-10-19] MEDS: pantoprazole 40mg Tablet.DR PO SCH (07:31)
[2018-10-19] MEDS: atorvastatin 10mg tablet PO SCH (07:31)
[2018-10-19] MEDS: docusate sod 100mg capsule PO SCH (07:31)
[2018-10-19 07:32] VITALS: BP_SYST 96
[2018-10-19] MEDS: metoprolol tartrate 12.5mg (1/2 tablet) PO SCH (07:32)
[2018-10-19] MEDS: lactose-reduced food (Ensure High Protein) 237ml bottle PO SCH (07:33)
[2018-10-19] MEDS ORDERED: COL100C PO (08:45)
[2018-10-19] MEDS ORDERED: ASPI-1265 PO (08:45)
[2018-10-19] MEDS ORDERED: HYDR-3972 PO (08:45)
[2018-10-19] MEDS ORDERED: METO25TA6 PO (08:45)
[2018-10-19] MEDS ORDERED: ATOR10TA PO (08:45)
--- NOTE | 2018-10-19 10:00 | NUR ---
PROVIDED PATIENT WITH DISCHARGE INSTRUCTIONS WELL NEW MEDICATION INFORMATION. PATIENT RECEIVED ALL NEW MEDICATIONS FROM [facility]. PATIENT AWARE OF ALL FOLLOW UP RECOMMENDATIONS AND WAS PROVIDED WITH NUMBERS TO CALL TO MAKE APPOINTMENTS. IV REMOVED, CATHETER INTACT, MINIMAL BLEEDING CLEAN GAUZE APPLIED AND SECURED WITH TAPE. PATIENT AND HIS MOM DENIED ANY FURTHER QUESTIONS OR CONCERN. AUXILLARY STAFF ACCOMPANIED PATIENT DOWN VIA WHEELCHAIR TO GO HOME VIA PRIVATE VEHICLE. ALL BELONGINGS TAKEN HOME WITH PATIENT.
--- NOTE | 2018-10-19 10:19 | NUR ---
Reassessment: Documented PO intake fluctuates with average 75-100% with 100% intake of Ensure high protein meeting nutrient needs. LBM 2/3. Will continue to follow. Recommend: 1. Continue no concentrated sweets diet 2. Ensure High Protein TID 3. Continue bowel care; monitor need for additional 4. Weight per rx Addendum: 10/19/18 at [address] Amended: Links added.
== END 2018-10-19 11:00 | disposition home health service (06) | DRG 220 ==
LOC: MED 3N 18:07 → ICU 2S 10-13 11:13 → CICU 2S 10-14 16:29 → MED 3N 10-16 10:35
PROVIDERS: ADMIT Thoracic Surgery (Cardiothoracic Vascular Surgery); ATTEND Thoracic Surgery (Cardiothoracic Vascular Surgery)
PROC: 02HV33Z Insertion of Infusion Device into Superior Vena Cava, Percutaneous Approach (ICD-10-PCS; 2018-10-13)
PROC: 02HP32Z Insertion of Monitoring Device into Pulmonary Trunk, Percutaneous Approach (ICD-10-PCS; 2018-10-13)
PROC: B548ZZA Ultrasonography of Superior Vena Cava, Guidance (ICD-10-PCS; 2018-10-13)
PROC: 02RF08Z Replacement of Aortic Valve with Zooplastic Tissue, Open Approach (ICD-10-PCS; principal; 2018-10-13 07:55)
PROC: 0JH607Z Insertion of Cardiac Resynchronization Pacemaker Pulse Generator into Chest Subcutaneous Tissue and Fascia, Open Approach (ICD-10-PCS; 2018-10-15)
PROC: 02HK3JZ Insertion of Pacemaker Lead into Right Ventricle, Percutaneous Approach (ICD-10-PCS; 2018-10-15)
PROC: 02HL3JZ Insertion of Pacemaker Lead into Left Ventricle, Percutaneous Approach (ICD-10-PCS; 2018-10-15)
PROC: 02H63JZ Insertion of Pacemaker Lead into Right Atrium, Percutaneous Approach (ICD-10-PCS; 2018-10-15)
DX: I35.0 Nonrheumatic aortic (valve) stenosis (principal); I44.2 Atrioventricular block, complete; Z68.41 Body mass index [BMI] 40.0-44.9, adult; E66.01 Morbid (severe) obesity due to excess calories; G47.33 Obstructive sleep apnea (adult) (pediatric); I11.0 Hypertensive heart disease with heart failure; I20.9 Angina pectoris, unspecified; I50.9 Heart failure, unspecified; K21.9 Gastro-esophageal reflux disease without esophagitis; G62.9 Polyneuropathy, unspecified; G89.21 Chronic pain due to trauma; M25.512 Pain in left shoulder; M54.9 Dorsalgia, unspecified; Z79.899 Other long term (current) drug therapy
CPT/HCPCS: 33208; 33225; 93312; 93325; Z7506; Z7508; 33249; 36415; 36600; 71045; 80048; 80053; 82330; 82435; 82803; 82947; 82948; 83036; 83735; 84100; 84132; 84295; 85018; 85025; 85347; 85384; 85610; 85730; 86885; 86900; 86901; 86920; 87070; 93005; 94002; 94010; 94668; 94760; 97110; 97116; 97161; 97530; 99152; 99153; A4620; A6196; A6255; A6257; A6449; A7000; A7048; C1751; C1769; C1882; C1887; C1898; C1900; C9113; G0378; J0690; J0780; J1170; J1200; J1815; J2060; J2250; J2270; J2370; J2405; J2765; J3010; J3370; J3475; J3480; J3490; J7030; J7120; P9045; Q9967

== ENCOUNTER 2018-10-30 10:26 | Inpatient (IN) | payer BC ==
[~2018-10-30] VITALS: Ht 185.4 cm; Wt 142.0 kg
[~2018-10-30 10:26] MED LIST changes: +ASPI-1265 PO; +ATOR10TA PO; +COL100C PO; +HYDR-3972 PO; +METO25TA6 PO; +NO HOME MEDS; -ringers solution, lacted 1,000 ML IV ONE
[2018-10-30 11:00] LABS: ABG OXYGEN SATURATION 95.9 % (95-98); ABG PCO2 (T) 32.5 mmHg (35.0-48.0); ABG PH (T) 7.468 (7.350-7.450); ALLEN'S TEST Positive; FCOHb 0.7 % (0.5-1.5); FO2Hb 95.2 % (94-100); TOTAL HEMOGLOBIN 13.2 G/dl (14.0-18.0)
[2018-10-30 11:24] LABS: BASOPHILS # (AUTO) 0.1 X10'3 (0-0.2); BASOPHILS % (AUTO) 0.6 % (0-1); EOSINOPHILS # (AUTO) 0.5 X10'3 (0-0.9); EOSINOPHILS % (AUTO) 4.6 % (0-6); HEMOGLOBIN 13.1 g/dl (14.0-17.9); LYMPHOCYTES # (AUTO) 1.5 X10'3 (1.1-4.8); LYMPHOCYTES % (AUTO) 14.5 % (21-51); MEAN CORPUSCULAR HEMOGLOBIN 30.9 PG (27.0-31.0); MEAN CORPUSCULAR HGB CONC 32.8 g/dL (33.0-36.5); MEAN CORPUSCULAR VOLUME 94.4 FL (78-98); MEAN PLATELET VOLUME 9.1 FL (7.4-10.4); MONOCYTES # (AUTO) 0.9 X10'3 (0-0.9); MONOCYTES % (AUTO) 8.9 % (2-12); NEUTROPHILS # (AUTO) 7.1 X10'3 (1.8-7.7); NEUTROPHILS % (AUTO) 71.4 % (42-75); PLATELET COUNT 226 X10'3 (140-440); RED BLOOD COUNT 4.24 X10'6 (4.70-6.10); RED CELL DISTRIBUTION WIDTH 12.8 % (11.5-14.5); WHITE BLOOD COUNT 10.1 X10'3 (4.5-11.0)
[2018-10-30 11:27] LABS: ALANINE AMINOTRANSFERASE 28 U/L (12-78); ALBUMIN 3.2 G/DL (3.4-5.0); ALBUMIN/GLOBULIN RATIO 0.8 (1.1-1.5); ALKALINE PHOSPHATASE 101 IU/L (46-116); ANION GAP 9 (8-16); ASPARTATE AMINO TRANSFERASE 14 U/L (10-37); BILIRUBIN,TOTAL 0.7 MG/DL (0.1-1.0); BLOOD UREA NITROGEN 16 MG/DL (7-18); BUN/CREATININE RATIO 13.9 (5.4-32.0); CHLORIDE 104 MMOL/L (99-107); CREATININE 1.15 MG/DL (0.60-1.10); GLUCOSE 112 MG/DL (70-104); SODIUM 139 MMOL/L (135-145); TOTAL CARBON DIOXIDE 26.3 MMOL/L (24-32); eGFR 66 ML/MIN
[2018-10-30 11:30] LABS: INR 1.1 INR; PARTIAL THROMBOPLASTIN TIME 27 SECONDS (22-32); PROTHROMBIN TIME 11.4 SECONDS (9.0-12.0)
[2018-10-30] MEDS ORDERED: iohexol 350MG/ML 100ml bottle IV ONE (12:02)
[2018-10-30] MEDS ORDERED: furosemide 10 MG/1 ML 10ml inj IV ONE (13:15)
[2018-10-30] MEDS ORDERED: digoxin 250mcg/ml 2ml ampule IV ONE (13:15)
[2018-10-30] MEDS ORDERED: mag hydrox/Alum hydrox/simeth 30ml oral suspension PO PRN (15:30)
[2018-10-30] MEDS ORDERED: potassium Cl 40MEQ/NS 500ml 500 ML IV PRN ×2 (15:30)
[2018-10-30] MEDS ORDERED: ondansetron/PF 4mg/2ml inj IV PRN (15:30)
[2018-10-30] MEDS ORDERED: magnesium 4gm in 100ml NS 100 ML IV PRN (15:30)
[2018-10-30] MEDS ORDERED: potassium Cl 20 mEq SR tablet PO PRN ×2 (15:30)
[2018-10-30] MEDS ORDERED: magnesium Cl slow-release 64mg tablet PO PRN (15:30)
[2018-10-30] MEDS ORDERED: magnesium 2GM in 50ml NS 50 ML IV PRN (15:30)
[2018-10-30] MEDS ORDERED: magnesium hydroxide 30ml (MOM) UD suspension PO PRN (15:30)
[2018-10-30] MEDS ORDERED: acetaminophen 325mg tablet PO PRN ×2 (15:30)
[2018-10-30 16:40] VITALS: BP 101/52
--- NOTE | 2018-10-30 16:40 | NUR ---
pt arrived to floor via gurney and ambulated to bed with a steady gait. VSS and pt oriented to room and call light.
[2018-10-30 18:00] VITALS: BP 102/57
--- NOTE | 2018-10-30 18:33 | NUR ---
Problems reprioritized. Patient report given, questions answered & plan of care reviewed with Rehan FRANKLIN.
[2018-10-30] MEDS: metoprolol tartrate 25mg tablet PO SCH (19:43)
[2018-10-30] MEDS: furosemide 20 MG/2 ML vial IV SCH (19:44)
[2018-10-30 23:00] VITALS: BP 103/68
[2018-10-31 03:00] VITALS: BP 107/71
[2018-10-31 05:08] LABS: ALBUMIN 3.1 G/DL (3.4-5.0); ANION GAP 10 (8-16); BLOOD UREA NITROGEN 13 MG/DL (7-18); BUN/CREATININE RATIO 13.1 (5.4-32.0); CALCIUM 8.7 MG/DL (8.5-10.1); CHLORIDE 101 MMOL/L (99-107); CREATININE 0.99 MG/DL (0.60-1.10); GLUCOSE 99 MG/DL (70-104); MAGNESIUM 1.9 MG/DL (1.5-2.4); POTASSIUM 3.6 MMOL/L (3.5-5.1); SODIUM 138 MMOL/L (135-145); TOTAL CARBON DIOXIDE 27.2 MMOL/L (24-32); eGFR 78 ML/MIN
[2018-10-31 05:16] LABS: BASOPHILS % (AUTO) 0.5 % (0-1); EOSINOPHILS # (AUTO) 0.4 X10'3 (0-0.9); EOSINOPHILS % (AUTO) 4.5 % (0-6); HEMATOCRIT 38.4 % (42.0-52.0); HEMOGLOBIN 12.9 g/dl (14.0-17.9); LYMPHOCYTES # (AUTO) 1.6 X10'3 (1.1-4.8); LYMPHOCYTES % (AUTO) 16.7 % (21-51); MEAN CORPUSCULAR HEMOGLOBIN 31.7 PG (27.0-31.0); MEAN CORPUSCULAR HGB CONC 33.7 g/dL (33.0-36.5); MEAN CORPUSCULAR VOLUME 93.8 FL (78-98); MONOCYTES # (AUTO) 0.8 X10'3 (0-0.9); MONOCYTES % (AUTO) 8.7 % (2-12); NEUTROPHILS # (AUTO) 6.9 X10'3 (1.8-7.7); NEUTROPHILS % (AUTO) 69.6 % (42-75); PLATELET COUNT 208 X10'3 (140-440); RED BLOOD COUNT 4.09 X10'6 (4.70-6.10); RED CELL DISTRIBUTION WIDTH 12.4 % (11.5-14.5); WHITE BLOOD COUNT 9.7 X10'3 (4.5-11.0)
[2018-10-31 06:00] VITALS: BP 115/76
[2018-10-31] MEDS: K and/or MAG REPLACEMENT MC SCH (08:00)
[2018-10-31] MEDS: furosemide 20 MG/2 ML vial IV SCH ×2 (08:15→20:38)
[2018-10-31] MEDS: atorvastatin 10mg tablet PO SCH (08:15)
[2018-10-31] MEDS: aspirin 81mg tab.chew PO SCH (08:15)
[2018-10-31] MEDS: metoprolol tartrate 25mg tablet PO SCH ×2 (08:15→20:38)
[2018-10-31] MEDS: enoxaparin 40mg/0.4ml syringe SQ SCH (08:16)
[2018-10-31 11:00] VITALS: BP 142/96
[2018-10-31 15:00] VITALS: BP 111/74
[2018-10-31 18:00] VITALS: BP 117/80
--- NOTE | 2018-10-31 18:11 | NUR ---
Problems reprioritized. Patient report given, questions answered & plan of care reviewed with NOEMI KRISHNAMURTHY.
[2018-10-31 22:00] VITALS: BP 107/69
[2018-11-01 02:00] VITALS: BP 112/73
[2018-11-01 05:37] LABS: ANION GAP 9 (8-16); BLOOD UREA NITROGEN 16 MG/DL (7-18); BUN/CREATININE RATIO 15.4 (5.4-32.0); CALCIUM 8.6 MG/DL (8.5-10.1); CHLORIDE 101 MMOL/L (99-107); CREATININE 1.04 MG/DL (0.60-1.10); GLUCOSE 96 MG/DL (70-104); MAGNESIUM 1.9 MG/DL (1.5-2.4); POTASSIUM 3.8 MMOL/L (3.5-5.1); SODIUM 139 MMOL/L (135-145); TOTAL CARBON DIOXIDE 28.7 MMOL/L (24-32); eGFR 74 ML/MIN
[2018-11-01 06:00] VITALS: BP 108/84
[2018-11-01 06:03] LABS: BASOPHILS # (AUTO) 0.1 X10'3 (0-0.2); BASOPHILS % (AUTO) 0.5 % (0-1); EOSINOPHILS # (AUTO) 0.5 X10'3 (0-0.9); EOSINOPHILS % (AUTO) 4.9 % (0-6); HEMATOCRIT 37.9 % (42.0-52.0); HEMOGLOBIN 12.9 g/dl (14.0-17.9); LYMPHOCYTES # (AUTO) 1.6 X10'3 (1.1-4.8); LYMPHOCYTES % (AUTO) 15.7 % (21-51); MEAN CORPUSCULAR HEMOGLOBIN 31.7 PG (27.0-31.0); MEAN CORPUSCULAR VOLUME 93.4 FL (78-98); MEAN PLATELET VOLUME 9.6 FL (7.4-10.4); MONOCYTES % (AUTO) 9.6 % (2-12); NEUTROPHILS # (AUTO) 7.1 X10'3 (1.8-7.7); NEUTROPHILS % (AUTO) 69.3 % (42-75); PLATELET COUNT 221 X10'3 (140-440); RED BLOOD COUNT 4.05 X10'6 (4.70-6.10); RED CELL DISTRIBUTION WIDTH 12.4 % (11.5-14.5); WHITE BLOOD COUNT 10.3 X10'3 (4.5-11.0)
--- NOTE | 2018-11-01 06:27 | NUR ---
Problems reprioritized. Patient report given, questions answered & plan of care reviewed with Dorothy FRANKLIN.
--- NOTE | 2018-11-01 06:45 | NUR ---
Patient in room MED 316. I have received report from Chip FRANKLIN and had the opportunity to ask questions and assume patient care.
[2018-11-01] MEDS: metoprolol tartrate 25mg tablet PO SCH ×2 (07:56→22:12)
[2018-11-01] MEDS: K and/or MAG REPLACEMENT MC SCH (07:57)
[2018-11-01] MEDS: aspirin 81mg tab.chew PO SCH (07:57)
[2018-11-01] MEDS: enoxaparin 40mg/0.4ml syringe SQ SCH (07:57)
[2018-11-01] MEDS: furosemide 20 MG/2 ML vial IV SCH ×2 (07:57→22:12)
[2018-11-01] MEDS: atorvastatin 10mg tablet PO SCH (07:57)
[2018-11-01 11:00] VITALS: BP 107/71
--- NOTE | 2018-11-01 11:00 | NUR ---
IR called and stated that they cannot do thoracentesis until tomorrow. Paged Dr Nash to notify him of such, and spoke with Osbaldo Paulino on the phone as well.
[2018-11-01 15:00] VITALS: BP 107/72
--- NOTE | 2018-11-01 15:06 | NUR ---
PAGER ID: [phone] MESSAGE: Dorothy BENNETT [phone] re Patient Pradeep Flores in 316, patient is requesting something to possibly help him sleep tonight
[2018-11-01 18:00] VITALS: BP 106/64
--- NOTE | 2018-11-01 18:18 | NUR ---
Problems reprioritized. Patient report given, questions answered & plan of care reviewed with Chip FRANKLIN.
[2018-11-01 22:00] VITALS: BP 108/75
[2018-11-02] MEDS: zolpidem 5mg tablet PO PRN ×2 (01:06→23:46)
[2018-11-02 02:00] VITALS: BP 99/68
[2018-11-02 06:28] LABS: ALBUMIN 3.1 G/DL (3.4-5.0); ANION GAP 8 (8-16); BLOOD UREA NITROGEN 14 MG/DL (7-18); BUN/CREATININE RATIO 13.6 (5.4-32.0); CALCIUM 8.8 MG/DL (8.5-10.1); CHLORIDE 101 MMOL/L (99-107); CREATININE 1.03 MG/DL (0.60-1.10); GLUCOSE 95 MG/DL (70-104); SODIUM 137 MMOL/L (135-145); TOTAL CARBON DIOXIDE 27.7 MMOL/L (24-32); eGFR 75 ML/MIN
--- NOTE | 2018-11-02 06:28 | NUR ---
Problems reprioritized. Patient report given, questions answered & plan of care reviewed with Talha FRANKLIN.
--- NOTE | 2018-11-02 06:30 | NUR ---
Patient in room MED 307. I have received report from Chip FRANKLIN and had the opportunity to ask questions and assume patient care.
[2018-11-02 06:31] LABS: POTASSIUM 3.8 MMOL/L (3.5-5.1)
[2018-11-02 07:00] VITALS: BP 113/68
[2018-11-02] MEDS: aspirin 81mg tab.chew PO SCH (07:12)
[2018-11-02] MEDS: furosemide 20 MG/2 ML vial IV SCH (07:12)
[2018-11-02] MEDS: metoprolol tartrate 25mg tablet PO SCH ×2 (07:14→20:58)
[2018-11-02] MEDS: atorvastatin 10mg tablet PO SCH (07:14)
[2018-11-02] MEDS: enoxaparin 40mg/0.4ml syringe SQ SCH (07:18)
[2018-11-02 07:41] LABS: BASOPHILS # (AUTO) 0.1 X10'3 (0-0.2); BASOPHILS % (AUTO) 0.8 % (0-1); EOSINOPHILS # (AUTO) 0.5 X10'3 (0-0.9); EOSINOPHILS % (AUTO) 5.4 % (0-6); HEMATOCRIT 37.5 % (42.0-52.0); HEMOGLOBIN 12.9 g/dl (14.0-17.9); LYMPHOCYTES # (AUTO) 1.5 X10'3 (1.1-4.8); LYMPHOCYTES % (AUTO) 16.3 % (21-51); MEAN CORPUSCULAR HEMOGLOBIN 31.4 PG (27.0-31.0); MEAN CORPUSCULAR HGB CONC 34.4 g/dL (33.0-36.5); MEAN CORPUSCULAR VOLUME 91.1 FL (78-98); MEAN PLATELET VOLUME 9.1 FL (7.4-10.4); MONOCYTES # (AUTO) 0.8 X10'3 (0-0.9); MONOCYTES % (AUTO) 8.9 % (2-12); NEUTROPHILS # (AUTO) 6.3 X10'3 (1.8-7.7); NEUTROPHILS % (AUTO) 68.6 % (42-75); PLATELET COUNT 227 X10'3 (140-440); RED BLOOD COUNT 4.12 X10'6 (4.70-6.10); RED CELL DISTRIBUTION WIDTH 13.2 % (11.5-14.5); WHITE BLOOD COUNT 9.1 X10'3 (4.5-11.0)
[2018-11-02] MEDS: K and/or MAG REPLACEMENT MC SCH (08:00)
[2018-11-02 11:54] VITALS: BP 94/74
--- NOTE | 2018-11-02 12:22 | NUR ---
PAC at bedside, told pt. that CxR improved and that he will not be needing thoracentesis. Provider removed the two stitches midline upper abdomen, chest tube site. No drainage.
[2018-11-02] MEDS ORDERED: APIX5TAB3 PO (14:39)
[2018-11-02] MEDS ORDERED: FURO40TA4 PO (14:39)
[2018-11-02] MEDS ORDERED: POTA20TA19 PO (14:39)
[2018-11-02 15:00] VITALS: BP 111/75
--- NOTE | 2018-11-02 17:49 | NUR ---
Student documentation: I have reviewed and agree with all interventions, assessments performed and documented by Migdalia.
[2018-11-02 18:00] VITALS: BP 124/67
--- NOTE | 2018-11-02 18:53 | NUR ---
Problems reprioritized. Patient report given, questions answered & plan of care reviewed with Chip FRANKLIN.
[2018-11-02] MEDS: furosemide 40mg/4ml inj IV SCH (20:59)
[2018-11-02 22:00] VITALS: BP 100/68
[2018-11-03 02:00] VITALS: BP 110/76
--- NOTE | 2018-11-03 04:00 | NUR ---
Message sent to Dr Sidhu regarding a 13 second run of Vtach that occured around 0345. Patient exhibited no symptoms, all vitals within normal limits. Ga , room 316, Pradeep Flores had a 13 second run of Vtach. Pt has recent history of AVR, AICD placed, asymptomatic vitals are normal. K at 3.8, Mg at 2.0. Chip FRANKLIN 1500
--- NOTE | 2018-11-03 06:00 | NUR ---
Patient in room MED 307. I have received report from Chip FRANKLIN and had the opportunity to ask questions and assume patient care.
[2018-11-03 06:14] LABS: BASOPHILS # (AUTO) 0.1 X10'3 (0-0.2); BASOPHILS % (AUTO) 0.8 % (0-1); EOSINOPHILS # (AUTO) 0.5 X10'3 (0-0.9); EOSINOPHILS % (AUTO) 5.1 % (0-6); HEMATOCRIT 37.9 % (42.0-52.0); LYMPHOCYTES # (AUTO) 1.6 X10'3 (1.1-4.8); LYMPHOCYTES % (AUTO) 15.4 % (21-51); MEAN CORPUSCULAR HEMOGLOBIN 31.3 PG (27.0-31.0); MEAN CORPUSCULAR HGB CONC 34.4 g/dL (33.0-36.5); MEAN PLATELET VOLUME 9.2 FL (7.4-10.4); MONOCYTES # (AUTO) 1.1 X10'3 (0-0.9); MONOCYTES % (AUTO) 10.3 % (2-12); NEUTROPHILS # (AUTO) 7.1 X10'3 (1.8-7.7); NEUTROPHILS % (AUTO) 68.4 % (42-75); PLATELET COUNT 218 X10'3 (140-440); RED BLOOD COUNT 4.17 X10'6 (4.70-6.10); RED CELL DISTRIBUTION WIDTH 12.9 % (11.5-14.5); WHITE BLOOD COUNT 10.3 X10'3 (4.5-11.0)
--- NOTE | 2018-11-03 06:18 | NUR ---
Problems reprioritized. Patient report given, questions answered & plan of care reviewed with Talha FRANKLIN.
[2018-11-03 06:22] LABS: ALBUMIN 3.2 G/DL (3.4-5.0); ANION GAP 8 (8-16); BLOOD UREA NITROGEN 17 MG/DL (7-18); BUN/CREATININE RATIO 16.3 (5.4-32.0); CALCIUM 8.9 MG/DL (8.5-10.1); CHLORIDE 99 MMOL/L (99-107); CREATININE 1.04 MG/DL (0.60-1.10); GLUCOSE 101 MG/DL (70-104); MAGNESIUM 1.9 MG/DL (1.5-2.4); POTASSIUM 3.4 MMOL/L (3.5-5.1); SODIUM 136 MMOL/L (135-145); TOTAL CARBON DIOXIDE 28.8 MMOL/L (24-32); eGFR 74 ML/MIN
[2018-11-03] MEDS: enoxaparin 40mg/0.4ml syringe SQ SCH (06:52)
[2018-11-03] MEDS ORDERED: magnesium 2GM in 50ml NS 50 ML IV PRN (06:55)
[2018-11-03] MEDS ORDERED: potassium Cl 40MEQ/NS 500ml 500 ML IV PRN ×2 (06:55)
[2018-11-03] MEDS ORDERED: magnesium Cl slow-release 64mg tablet PO PRN (06:55)
[2018-11-03] MEDS ORDERED: potassium Cl 20 mEq SR tablet PO PRN ×2 (06:55)
[2018-11-03] MEDS ORDERED: magnesium 4gm in 100ml NS 100 ML IV PRN (06:55)
[2018-11-03 07:00] VITALS: BP 108/72
[2018-11-03] MEDS: furosemide 40mg/4ml inj IV SCH (07:31)
[2018-11-03] MEDS: aspirin 81mg tab.chew PO SCH (07:31)
[2018-11-03] MEDS: metoprolol tartrate 25mg tablet PO SCH (07:32)
[2018-11-03] MEDS: atorvastatin 10mg tablet PO SCH (07:33)
[2018-11-03] MEDS: K and/or MAG REPLACEMENT MC SCH (08:00)
[2018-11-03] MEDS ORDERED: LIDOcaine 1%/PF 5ML 10 MG/ML VIAL ONE (10:16)
[2018-11-03 11:00] VITALS: BP_SYST 115; BP_SYST 99; BP_DIAS 80; BP_DIAS 82
[2018-11-03 11:15] VITALS: BP 99/80
--- NOTE | 2018-11-03 11:58 | NUR ---
PAGER ID: [phone] MESSAGE: [phone]-Mark. Thora complete. 525cc out. Chest xray complete and looks normal. Talha FRANKLIN [phone]
--- NOTE | 2018-11-03 12:29 | NUR ---
Initial: Pt admit with acute exacerbation of diastolic CHF, on IV Lasix. Pt also with right-sided pleural effusion, IR consulted for thoracocentesis per MD progress notes. Pt currently on a heart healthy diet with documented PO intake 75-100% meeting nutrient needs. LB 11/01. No nutrition diagnosis at this time. Will continue to follow. Recommendations: 1) Continue with heart healthy diet 2) Wt per rx Addendum: 11/03/18 at [address] Amended: Links added.
--- NOTE | 2018-11-03 15:16 | NUR ---
Student documentation: I have reviewed and agree with all interventions, assessments performed and documented by Brittany.
== END 2018-11-03 14:50 | disposition home health service (06) | DRG 308 ==
LOC: ER 10:27 → ED HOLD 15:28 → MED 3N 16:45
PROVIDERS: ADMIT Hospitalist; ATTEND Family Medicine
PROC: B3201ZZ Computerized Tomography (CT Scan) of Thoracic Aorta using Low Osmolar Contrast (ICD-10-PCS; 2018-10-30)
PROC: 4B02XSZ Measurement of Cardiac Pacemaker, External Approach (ICD-10-PCS; 2018-10-30)
PROC: 5A09357 Assistance with Respiratory Ventilation, Less than 24 Consecutive Hours, Continuous Positive Airway Pressure (ICD-10-PCS; principal; 2018-10-31)
PROC: 5A09357 Assistance with Respiratory Ventilation, Less than 24 Consecutive Hours, Continuous Positive Airway Pressure (ICD-10-PCS; 2018-11-01)
PROC: 5A09357 Assistance with Respiratory Ventilation, Less than 24 Consecutive Hours, Continuous Positive Airway Pressure (ICD-10-PCS; 2018-11-02)
PROC: 0W993ZZ Drainage of Right Pleural Cavity, Percutaneous Approach (ICD-10-PCS; 2018-11-03)
DX: I48.91 Unspecified atrial fibrillation (principal); I50.33 Acute on chronic diastolic (congestive) heart failure; J91.8 Pleural effusion in other conditions classified elsewhere; K21.9 Gastro-esophageal reflux disease without esophagitis; G89.29 Other chronic pain; E78.5 Hyperlipidemia, unspecified; I11.0 Hypertensive heart disease with heart failure; M54.9 Dorsalgia, unspecified; R06.03 Acute respiratory distress; Z95.2 Presence of prosthetic heart valve; Z79.899 Other long term (current) drug therapy; Z79.82 Long term (current) use of aspirin
CPT/HCPCS: 32555; 36415; 36600; 71045; 71275; 80048; 80053; 82803; 83605; 83735; 83880; 84484; 85018; 85025; 85610; 85730; 87040; 87070; 93005; 93306; 96374; 96375; 99285; G0378; J1160; J1650; J1940; J2001; Q9967

== ENCOUNTER 2024-01-01 08:00 | Day surgery (SDC) | payer BC ==
[2024-01-01] VITALS (7 sets, daily range): BP systolic 110–140; BP diastolic 63–93; PULSE 75–84; RESP 16; TEMP 97.9; O2SAT 94–96
[~2024-01-01] VITALS: Ht 182.9 cm; Wt 164.6 kg
[~2024-01-01 08:00] MED LIST changes: +APIX5TAB3 PO; -ASPI-1265 PO; -ATOR10TA PO; -COL100C PO; +FURO-149 PO; -HYDR-3972 PO; +LOP25T PO; -METO25TA6 PO; -NO HOME MEDS; +POTA-366 PO; +[UNRECOGNIZED DRUG - CODE]
[2024-01-01] MEDS ORDERED: cefazolin 2gm/D5W 100mL 100 ML IV ONE (08:20)
[2024-01-01] MEDS ORDERED: OLME20TA69 PO (08:44)
[2024-01-01 09:23] LABS: BASOPHILS % (AUTO) 0.4 % (0-1); EOSINOPHILS # (AUTO) 0.2 X10'3 (0-0.9); EOSINOPHILS % (AUTO) 2.8 % (0-6); HEMATOCRIT 45.7 % (42.0-52.0); HEMOGLOBIN 15.5 g/dl (14.0-17.9); LYMPHOCYTES # (AUTO) 2.1 X10'3 (1.1-4.8); LYMPHOCYTES % (AUTO) 28.4 % (21-51); MEAN CORPUSCULAR HEMOGLOBIN 32.5 PG (27.0-31.0); MEAN CORPUSCULAR HGB CONC 33.8 g/dL (33.0-36.5); MEAN PLATELET VOLUME 8.8 FL (7.4-10.4); MONOCYTES # (AUTO) 0.7 X10'3 (0-0.9); MONOCYTES % (AUTO) 9.4 % (2-12); NEUTROPHILS # (AUTO) 4.3 X10'3 (1.8-7.7); PLATELET COUNT 171 X10'3 (140-440); RED BLOOD COUNT 4.76 X10'6 (4.70-6.10); RED CELL DISTRIBUTION WIDTH 13.3 % (11.5-14.5); WHITE BLOOD COUNT 7.3 X10'3 (4.5-11.0)
[2024-01-01 09:34] LABS: INR 1.1 INR; PROTHROMBIN TIME 11.1 SECONDS (9.0-12.0)
[2024-01-01 09:41] LABS: ALBUMIN 3.5 G/DL (3.4-5.0); ANION GAP 9 (8-16); BLOOD UREA NITROGEN 14 MG/DL (7-18); BUN/CREATININE RATIO 13.2 (10.0-20.0); CALCIUM 8.8 MG/DL (8.5-10.1); CHLORIDE 106 MMOL/L (99-107); CREATININE 1.06 MG/DL (0.60-1.10); GLUCOSE 97 MG/DL (70-104); MAGNESIUM 1.9 MG/DL (1.5-2.4); POTASSIUM 4.2 MMOL/L (3.5-5.1); SODIUM 141 MMOL/L (135-145); TOTAL CARBON DIOXIDE 26.2 MMOL/L (24-32); eCRCL 80 ML/MIN; eGFR 71 ML/MIN
[2024-01-01] MEDS: VANCOMYCIN 1,500MG in NS 300ml IVPB IV ONE (11:21)
[2024-01-01] MEDS ORDERED: LIDOCAINE 2%/EPI 1:100,000 inj. Multi-dose 20 ML VIAL ONE (11:46)
[2024-01-01] MEDS ORDERED: midazolam 1 mg/ML 2ml injection ONE ×3 (11:46→13:17)
[2024-01-01] MEDS ORDERED: fentaNYL/PF 50MCG/1 ML 2ML syringe ONE (11:46)
[2024-01-01] MEDS ORDERED: vancomycin 1,000mg inj ONE (11:47)
[2024-01-01] MEDS ORDERED: normal saline 1000ml 1,000 ML IV ONE (14:25)
== END 2024-01-01 15:35 | disposition home or self-care (01) ==
LOC: SSTAY O 08:00
PROVIDERS: ATTEND Internal Medicine Cardiovascular Disease
DX: Z45.02 Encounter for adjustment and management of automatic implantable cardiac defibrillator (principal); I42.0 Dilated cardiomyopathy
CPT/HCPCS: 33264; 36415; 80048; 83735; 85025; 85610; 93005; 99152; 99153; C1882; J2250; J3010; J3370; J7030; J7040; 33263

== ENCOUNTER 2024-01-08 12:12 | Emergency (ER) | payer BC ==
[~2024-01-08] VITALS: Ht 182.9 cm; Wt 151.5 kg
[~2024-01-08 12:12] MED LIST changes: -APIX5TAB3 PO; -FURO-149 PO; -LOP25T PO; +OLME20TA69 PO; -POTA-366 PO; -[UNRECOGNIZED DRUG - CODE]
[2024-01-08 12:57] VITALS: BP 117/80; PULSE 80; RESP 16; O2SAT 94
[2024-01-08 14:16] VITALS: TEMP 98.8
== END 2024-01-08 14:17 | disposition home or self-care (01) ==
LOC: ER 12:13
DX: Z48.01 Encounter for change or removal of surgical wound dressing (principal); I10 Essential (primary) hypertension; K21.9 Gastro-esophageal reflux disease without esophagitis; Z79.899 Other long term (current) drug therapy
CPT/HCPCS: 99281; A6212; A6213; A6258; A6449